=== PATIENT | female | born 1985 | race Two or more races ===

== ENCOUNTER 2017-08-23 23:02 | Emergency (ER) | payer MEDICAID ==
[~2017-08-23] VITALS: Ht 154.9 cm; Wt 77.3 kg
[2017-08-23 23:03] VITALS: BP 124/87
[2017-08-23] MEDS ORDERED: HYDROcodone/APAP 5/325 TABLET ONE (23:19)
[2017-08-23] MEDS ORDERED: HYDROcodone/APAP 5/325 TABLET PO ONE (23:30)
== END 2017-08-23 23:32 | disposition home or self-care (01) ==
LOC: ED 23:10
DX: K02.9 Dental caries, unspecified (principal)
CPT/HCPCS: 99283

== ENCOUNTER 2017-08-27 23:16 | Emergency (ER) | payer MEDICAID ==
[~2017-08-27] VITALS: Ht 154.9 cm; Wt 74.8 kg
[2017-08-27 23:17] VITALS: BP 136/89
[2017-08-28] MEDS ORDERED: HYDROcodone/APAP 5/325 TABLET PO STA (00:52)
[2017-08-28] MEDS ORDERED: HYDROcodone/APAP 5/325 TABLET ONE (01:00)
== END 2017-08-28 01:20 | disposition home or self-care (01) ==
LOC: ED 23:52
DX: L89.899 Pressure ulcer of other site, unspecified stage (principal); M79.672 Pain in left foot; M79.671 Pain in right foot; Z59.0 Homelessness; F17.210 Nicotine dependence, cigarettes, uncomplicated
CPT/HCPCS: 99282

== ENCOUNTER 2018-02-18 19:25 | Emergency (ER) | payer SELFPAY ==
[~2018-02-18] VITALS: Ht 154.9 cm; Wt 75.9 kg
[2018-02-18 19:27] VITALS: BP 142/97
== END 2018-02-18 20:24 | disposition home or self-care (01) ==
LOC: ED 20:18
DX: K08.89 Other specified disorders of teeth and supporting structures (principal); J02.9 Acute pharyngitis, unspecified; F17.210 Nicotine dependence, cigarettes, uncomplicated
CPT/HCPCS: 99283

== ENCOUNTER 2018-03-27 16:21 | Emergency (ER) | payer MEDICAID | END 2018-03-27 17:13 | disposition left against medical advice (07) | LOC: ED 17:00 | DX: M79.605 Pain in left leg (principal); R51 Headache; Z53.21 Procedure and treatment not carried out due to patient leaving prior to being seen by health care provider ==

== ENCOUNTER 2018-03-31 04:37 | Emergency (ER) | payer MEDICAID ==
[~2018-03-31] VITALS: Ht 154.9 cm; Wt 76.0 kg
[2018-03-31 04:38] VITALS: BP 151/103
[2018-03-31 05:21] LABS: HCG UR SG 1.022 (1.003-1.030)
[2018-03-31 05:38] LABS: MICROSCOPIC INDICATED
[2018-03-31 05:39] LABS: CULTURE INDICATED? YES
== END 2018-03-31 05:51 | disposition home or self-care (01) ==
LOC: ED 05:42
DX: N30.01 Acute cystitis with hematuria (principal); F17.200 Nicotine dependence, unspecified, uncomplicated
CPT/HCPCS: 81001; 81025; 87086; 99284

== ENCOUNTER 2018-12-11 11:03 | Emergency (ER) | payer MEDICAID ==
[~2018-12-11] VITALS: Ht 152.4 cm; Wt 77.9 kg
[2018-12-11 11:22] VITALS: BP 130/87
[2018-12-11] MEDS ORDERED: DEXAMETHASONE 4 MG/ML, 1ML ONE (11:54)
[2018-12-11] MEDS ORDERED: DEXAMETHASONE 4 MG/ML, 1ML PO ONE (12:00)
== END 2018-12-11 12:56 | disposition home or self-care (01) ==
LOC: ED 12:30
DX: H65.01 Acute serous otitis media, right ear (principal); J02.8 Acute pharyngitis due to other specified organisms
CPT/HCPCS: 87081; 87880; 99283; J1100

== ENCOUNTER 2019-07-30 21:04 | Emergency (ER) | payer MEDICAID ==
[~2019-07-30] VITALS: Ht 154.9 cm; Wt 76.8 kg
[2019-07-30 22:16] LABS: BASOPHILS # (AUTO) 0.02 x10^3/uL (0-0.1); BASOPHILS % (AUTO) 0 % (0-1); EOSINOPHILS % (AUTO) 0 % (1-7); LYMPHOCYTES # (AUTO) 2.44 x10^3/uL (1-3.4); LYMPHOCYTES % (AUTO) 41 % (22-44); MD NO; MEAN CORPUSCULAR HEMOGLOBIN 32.1 pg (27.0-34.8); MEAN CORPUSCULAR HGB CONC 33.5 g/dL (32.4-35.8); MEAN CORPUSCULAR VOLUME 95.9 fL (80-100); MEAN PLATELET VOLUME 7.9 fL (7.4-10.4); MONOCYTES # (AUTO) 0.48 x10^3/uL (0.2-0.8); MONOCYTES % (AUTO) 8 % (2-9); NEUTROPHILS # (AUTO) 3.05 x10^3/uL (1.8-6.8); NEUTROPHILS % (AUTO) 51 % (42-75); PLATELET COUNT 216 x10^3/uL (130-400); RED BLOOD COUNT 4.21 x10^6/uL (3.82-5.3); RED CELL DISTRIBUTION WIDTH 13.1 % (9.6-15.2)
[2019-07-30 22:29] LABS: ALBUMIN 3.3 g/dL (3.4-5.0); ANION GAP 5 mmol/L (5-15); CALCIUM 7.9 mg/dL (8.5-10.1); CHLORIDE 110 mmol/L (98-107); CREATININE 0.94 mg/dL (0.55-1.02)
[2019-07-30 22:33] LABS: TROPONIN I < 0.015 ng/mL (0.000-0.045)
--- NOTE | 2019-07-30 23:15 | NUR ---
pt to room from lobby
[2019-07-30 23:30] VITALS: BP 109/69
[2019-07-30] MEDS ORDERED: ALBUTEROL/IPRATROPIUM 2.5MG/0.5MG, 3 ML NPPB ONE (23:30)
[2019-07-30] MEDS ORDERED: DEXAMETHASONE 4 MG TABLET PO ONE (23:30)
[2019-07-30] MEDS ORDERED: ALBUTEROL/IPRATROPIUM 2.5MG/0.5MG, 3 ML ONE (23:43)
[2019-07-30] MEDS ORDERED: DEXAMETHASONE 4 MG TABLET ONE (23:44)
== END 2019-07-31 00:40 | disposition home or self-care (01) ==
LOC: ED 23:14
DX: J00 Acute nasopharyngitis [common cold] (principal); B34.9 Viral infection, unspecified; M54.9 Dorsalgia, unspecified
CPT/HCPCS: 36415; 71045; 80048; 82040; 84484; 85025; 93005; 94640; 99284; J7620

== ENCOUNTER 2020-02-27 08:23 | Emergency (ER) | payer MEDICAID, OTHER ==
[~2020-02-27] VITALS: Ht 154.9 cm; Wt 80.0 kg
[2020-02-27] MEDS ORDERED: ONDANSETRON 2MG/ML, 2ML ONE (08:48)
--- NOTE | 2020-02-27 08:50 | NUR ---
US AT BEDSIDE.
[2020-02-27] MEDS ORDERED: SODIUM CHLORIDE 0.9% 1,000ML IVBOLUS ONE (09:00)
[2020-02-27] MEDS ORDERED: SODIUM CHLORIDE FLUSH 10ML SYR IVF ONE (09:00)
[2020-02-27] MEDS ORDERED: ONDANSETRON 2MG/ML, 2ML IVPush ONE (09:00)
--- NOTE | 2020-02-27 09:41 | NUR ---
PT ABLE TO AMBULATE TO BATHROOM ON OWN STEADILY. URINE WALKED TO LAB.
[2020-02-27 09:44] LABS: BASOPHILS # (AUTO) 0.03 x10^3/uL (0-0.1); BASOPHILS % (AUTO) 1 % (0-1); EOSINOPHILS # (AUTO) 0.08 x10^3/uL (0-0.4); EOSINOPHILS % (AUTO) 1 % (1-7); LYMPHOCYTES % (AUTO) 27 % (22-44); MD NO; MEAN CORPUSCULAR HEMOGLOBIN 32.3 pg (27.0-34.8); MEAN PLATELET VOLUME 7.7 fL (7.4-10.4); MONOCYTES # (AUTO) 0.39 x10^3/uL (0.2-0.8); MONOCYTES % (AUTO) 6 % (2-9); NEUTROPHILS # (AUTO) 4.44 x10^3/uL (1.8-6.8); NEUTROPHILS % (AUTO) 66 % (42-75); PLATELET COUNT 300 x10^3/uL (130-400); RED BLOOD COUNT 4.23 x10^6/uL (3.82-5.3); RED CELL DISTRIBUTION WIDTH 13.8 % (9.6-15.2)
[2020-02-27 09:56] LABS: ALBUMIN 3.5 g/dL (3.4-5.0); ANION GAP 8 mmol/L (5-15); CALCIUM 8.5 mg/dL (8.5-10.1); CHLORIDE 107 mmol/L (98-107)
[2020-02-27 10:01] LABS: ALANINE AMINOTRANSFERASE 31 U/L (12-78); ALKALINE PHOSPHATASE 58 U/L (45-117); BILIRUBIN,TOTAL 0.6 mg/dL (0.2-1.0); CREATININE 0.84 mg/dL (0.55-1.02); TOTAL PROTEIN 7.2 g/dL (6.4-8.2)
[2020-02-27] MEDS ORDERED: ONDANSETRON ODT 4 MG ONE (10:10)
--- NOTE | 2020-02-27 10:14 | NUR ---
UNABLE TO OBTAIN IV ACCESS X 5 ATTEMPTS BETWEEN TWO RNs. ERP AWARE, PT MED CHANGED TO ODT. PT RESTING CALMLY IN BED, CALL LIGHT WITHIN REACH.
[2020-02-27 10:24] LABS: MICROSCOPIC AUTO
[2020-02-27] MEDS ORDERED: ONDANSETRON ODT 4 MG PO ONE (10:30)
[2020-02-27 11:47] VITALS: BP 105/70
== END 2020-02-27 11:46 | disposition home or self-care (01) ==
LOC: ED 11:17
DX: N30.01 Acute cystitis with hematuria (principal); R11.2 Nausea with vomiting, unspecified
CPT/HCPCS: 36415; 76700; 80053; 81001; 81025; 83690; 85025; 87086; 99285; Q0162

== ENCOUNTER 2020-06-08 15:52 | Emergency (ER) | payer SELFPAY ==
[~2020-06-08] VITALS: Ht 154.9 cm; Wt 79.5 kg
[2020-06-08 16:52] LABS: BASOPHILS % (AUTO) 1 % (0-1); EOSINOPHILS % (AUTO) 1 % (1-7); LYMPHOCYTES % (AUTO) 28 % (22-44); MEAN CORPUSCULAR HEMOGLOBIN 31.8 pg (27.0-34.8); MEAN CORPUSCULAR HGB CONC 33.9 g/dL (32.4-35.8); MEAN PLATELET VOLUME 7.7 fL (7.4-10.4); MONOCYTES % (AUTO) 9 % (2-9); NEUTROPHILS % (AUTO) 61 % (42-75); PLATELET COUNT 374 x10^3/uL (130-400); RED BLOOD COUNT 4.54 x10^6/uL (3.82-5.3); RED CELL DISTRIBUTION WIDTH 13.3 % (9.6-15.2)
[2020-06-08 16:57] LABS: MD NO
[2020-06-08 17:01] LABS: ALBUMIN 3.3 g/dL (3.4-5.0); ANION GAP 5 mmol/L (5-15); CALCIUM 8.9 mg/dL (8.5-10.1); CHLORIDE 108 mmol/L (98-107); CREATININE 0.98 mg/dL (0.55-1.02)
[2020-06-08 17:02] LABS: MICROSCOPIC AUTO
--- NOTE | 2020-06-08 17:50 | NUR ---
PT CAME IN CO OF BLOODY URINE, BLOOD DURING INTERCOURSE, PAINFUL INTERCOURSE X 2 DAYS. PT ALSO STATES HER LMP WAS 2 MONTHS AGO. DOESNT TAKE CONTROL. PT ALSO CO OF SORE THROAT AND SORE ON HER LIP. PT RESTING IN [facility]. LABS SENT. BLANKETS PROVIDED.
[2020-06-08 19:24] VITALS: BP 139/86
[2020-06-08 20:52] LABS: WET PREP WBCS FEW (FEW)
[2020-06-08 20:58] LABS: CLUE CELLS NONE SEEN (NONE SEEN)
== END 2020-06-08 22:18 | disposition home or self-care (01) ==
LOC: ED 17:56
DX: R10.2 Pelvic and perineal pain (principal); J02.8 Acute pharyngitis due to other specified organisms; B97.89 Other viral agents as the cause of diseases classified elsewhere; R31.9 Hematuria, unspecified; R30.0 Dysuria
CPT/HCPCS: 36415; 76830; 80048; 81001; 82040; 84703; 85025; 87081; 87086; 87147; 87210; 87491; 87591; 87808; 87880; 99284

== ENCOUNTER 2020-06-13 08:57 | Emergency (ER) | payer OTHER ==
[~2020-06-13] VITALS: Ht 175.3 cm; Wt 79.4 kg
--- NOTE | 2020-06-13 09:20 | NUR ---
ASSUMED CARE OF PT AT THIS TIME FROM [facility], AMBULATORY TO ROOM WITH STEADY GAIT. DR. LANIER AT BEDSIDE FOR EVALUATION. 35 Y/O F PRESENTS STATING "THEY CALLED ME TO COME IN TO GET THE ANTIBIOTICS FOR AN STD." DENIES ANY PAIN, CP, SOB, N/V/D, COUGH. VSS. CALL LIGHT IN REACH. FALL PRECAUTIONS IN PLACE. NAD NOTED. RESP REGULAR AND UNLABORED. A&OX4.
[2020-06-13] MEDS ORDERED: CEFTRIAXONE 250 MG IM ONE (09:30)
[2020-06-13] MEDS ORDERED: CEFTRIAXONE 250 MG ONE (09:30)
[2020-06-13] MEDS ORDERED: LIDOCAINE-MPF 1%, 5ML ONE (09:30)
--- NOTE | 2020-06-13 09:33 | NUR ---
DARNELL AMBROCIO AT BEDSIDE TO ADMIN MEDICATION PER MD ORDER
--- NOTE | 2020-06-13 09:36 | NUR ---
TASK RN: PT MED NOTED.
[2020-06-13 09:48] VITALS: BP 125/75
== END 2020-06-13 09:51 | disposition home or self-care (01) ==
LOC: ED 09:37
DX: A54.02 Gonococcal vulvovaginitis, unspecified (principal)
CPT/HCPCS: 96372; 99283; J0696